=== PATIENT | male | born 1940 | race Caucasian/White ===

== ENCOUNTER 2018-06-20 00:38 | Inpatient (IN) | payer MEDICARE, OTHER ==
[2018-06-19 15:30] LABS: INR 1.03
--- NOTE | 2018-06-19 21:24 | HISTORY AND PHYSICAL ---
DATE OF ADMISSION: June 20, 2018 IDENTIFICATION/CHIEF COMPLAINT Matthew is a 78-year-old gentleman with the chief complaint of left hip pain. HISTORY OF PRESENT ILLNESS Patient has a long-standing history of hip arthritis, progressively painful and debilitating, refractory to conservative care. Surgery is indicated to relieve symptoms after failure of nonoperative measures. PAST MEDICAL HISTORY Notable for generally good health. ALLERGIES He has no known drug allergies. CURRENT MEDICATIONS 1. Baby aspirin a day. 2. Vitamins. PAST SURGICAL HISTORY 1. Cholecystectomy. 2. Left ankle surgery. 3. Right ankle fusion. SOCIAL HISTORY Negative for tobacco and alcohol use. FAMILY HISTORY Noncontributory. REVIEW OF SYSTEMS Negative. PHYSICAL EXAMINATION GENERAL: This is a well-developed, well-nourished male who appears stated age. HEENT: Normocephalic, atraumatic. NECK: Supple. LUNGS: Clear. HEART: Regular. ABDOMEN: Soft. ORTHOPEDIC: The left hip is exquisitely painful with combined flexion and rotation, and he is stiff at the end range of motion. Hip girdle strength is grossly normal. Skin envelope is intact. Calf is nontender. Neurovascular function intact. IMAGING Radiographs demonstrate end-stage hip arthritis. ASSESSMENT Left hip end-stage degenerative joint disease, progressively painful and debilitating, refractory to conservative care. PLAN Per patient request, we are going to proceed with total hip arthroplasty. The nature of the procedure, risks, benefits, the anticipated rehabilitative course reviewed. Risks include, but are not limited to , major medical or anesthetic complication, infection, neurovascular injury, blood transfusion, stiffness, scarring, fracture, tendon rupture, instability, leg length discrepancy, implant loosening, migration, or failure, persistent or recurrent pain, need for additional surgery, and other unforeseen. He understands and wishes to proceed. Signed permit is placed in the chart. No guarantees are given or implied. [facility]ITAL[facility]
[2018-06-20] VITALS (14 sets, daily range): BP systolic 107–144; BP diastolic 71–108
[~2018-06-20] VITALS: Ht 182.9 cm; Wt 90.7 kg
[~2018-06-20 00:38] MED LIST: ASPI81TA94 PO; FISH OIL PO; GLUC-198 PO; OXYC-869 PO; VITAMIN C PO
[2018-06-20] MEDS ORDERED: MIDAZOLAM 2 MG/2 ML VIAL IVP PRN (10:00)
[2018-06-20] MEDS ORDERED: ACETAMINOPHEN 500 MG TAB PO ONE (10:00)
[2018-06-20] MEDS ORDERED: CELECOXIB 200 MG CAP PO ONE (10:00)
[2018-06-20] MEDS ORDERED: FAMOTIDINE 20 MG TAB PO ONE (10:00)
[2018-06-20] MEDS ORDERED: LIDOCAINE/SOD BICARB 8.4% SYR ID ONE (10:00)
[2018-06-20] MEDS ORDERED: ceFAZolin(*) 2GM/D5W 50ML 50 ML IVPB ONE ×2 (10:00→10:30)
[2018-06-20] MEDS ORDERED: PREGABALIN 75 MG CAPSULE PO ONE (10:00)
[2018-06-20] MEDS ORDERED: NORMOSOL R SOLN(*) 1000 ML BAG 1,000 ML IV PRN ×2 (10:00→15:05)
[2018-06-20] MEDS ORDERED: TRANEXAMIC AC 1000 MG/10ML SDV 1,000 MG in DEXTROSE 5% 50 ML BAG 50 ML IV ONE ×2 (10:30→11:00)
[2018-06-20] MEDS ORDERED: cloNIDine EPIDUR INJ 100MCG/ML 40 MCG, ROPIVACAINE 0.5% 20 ML VIAL 25 ML, EPINEPHrine H... INJ ONE ×2 (10:30→11:00)
[2018-06-20] MEDS ORDERED: PROPOFOL EMUL(*) 10MG/ML 20 ML 20 ML ONE (13:05)
[2018-06-20] MEDS ORDERED: ONDANSETRON 4 MG/2 ML VIAL ONE (13:05)
[2018-06-20] MEDS ORDERED: VANCOMYCIN 1 GM VIAL ONE (14:21)
[2018-06-20] MEDS ORDERED: FLUSH 10 ML SYR IVP PRN (15:05)
[2018-06-20] MEDS ORDERED: APAP/HYDROCODONE 325/7.5 TAB PO PRN (15:05)
[2018-06-20] MEDS ORDERED: PROMETHAZINE 25 MG/ML 1 ML AMP IVP PRN (15:05)
[2018-06-20] MEDS ORDERED: MAGNESIUM HYDROXIDE* 30ML UDCP PO PRN (15:05)
[2018-06-20] MEDS ORDERED: BISACODYL 10 MG SUPP PR PRN (15:05)
[2018-06-20] MEDS ORDERED: DIAZEPAM 5 MG TAB PO PRN (15:05)
[2018-06-20] MEDS ORDERED: ZOLPIDEM TARTRATE 5 MG TAB PO PRN (15:05)
[2018-06-20] MEDS ORDERED: BENZOCAINE/MENTHOL 1 EACH LOZG PO PRN (15:05)
[2018-06-20] MEDS ORDERED: diphenhydrAMINE 25 MG CAP PO PRN (15:05)
[2018-06-20] MEDS ORDERED: ACETAMINOPHEN 325 MG TAB PO PRN (15:05)
[2018-06-20] MEDS ORDERED: diphenhydrAMINE 50 MG/ML VIAL IVP PRN (15:05)
--- NOTE | 2018-06-20 15:42 | RADIOLOGY IMAGING REPORT ---
FACILITY: [facility] - [place] PATIENT NAME: Matthew Vargas : 1940 MR: [id number] V: [id number] EXAM DATE: ORDERING PHYSICIAN: GIESLLE LOAIZA TECHNOLOGIST: [place] [facility] [place] Matthew Vargas : 1940 Visit/Account:[id number] Date of Sevice: 06/20/2018 Exam type: PELVIS History: S/P LEFT HIP ARTHROPLASTY, CHECK PLACEMENT Comparison: None. Findings: There is a left hip arthroplasty appears in good anatomic alignment on this AP view. Soft tissue gas and skin marie project over the adjacent to this postoperative hip. Incidentally noted are modera te degenerative changes the right hip joint. IMPRESSION: 1. Left hip arthroplasty appears in good anatomic alignment on this AP view Report Dictated By: Kaity Patton MD at 06/20/2018 3:35 PM Report E-Signed By: Kaity Patton MD at 06/20/2018 3:36 PM WSN:[id number]
--- NOTE | 2018-06-20 15:44 | OPERATIVE REPORT 1 ---
EVENT DATE: June 20, 2018 SURGEON: Papa Ramsay MD ANESTHESIOLOGIST: Kranthi Walters MD ANESTHESIA: General plus spinal. OFFICE MACHINE INSPECTOR: TOÑA Quintero PREOPERATIVE DIAGNOSIS Left hip end-stage degenerative joint disease. POSTOPERATIVE DIAGNOSIS Left hip end-stage degenerative joint disease. PROCEDURE PERFORMED Left total hip arthroplasty. ESTIMATED BLOOD LOSS 300 mL DRAINS None. SPECIMENS None. COMPLICATIONS None apparent. IMPLANTS USED Barbara system with a Trident PSL BRAUN 58 mm shell, a Trident X3 zero-degree poly insert for the shell to accommodate a 36 mm head, Accolade 232-degree neck angle hip stem size 9, a Biolox Delta Ceramic V40 femoral head, a 36 mm diameter, +5 neck length. INDICATIONS Matthew is a 78-year-old gentleman with intractable pain and disability related to end-stage hip arthritis. Surgery is indicated to relieve pain and improve function after failure of nonoperative measures. DESCRIPTION OF PROCEDURE Patient was taken to the operating room, placed supine on the operating table. General anesthesia induced after spinal block is administered by the anesthesiologist. Antibiotics are administered IV along with TXA. The patient is positioned in the right lateral decubitus on a well-padded pegboard. Pelvis is secured in a vertical position. All bony prominences and superficial nerves are well padded. The left hip girdle and lower extremity are prepped and draped free in the usual sterile fashion for orthopedic surgery. A small incision posterolateral approach is made, carried down through the skin and subcutaneous tissue down to the deep fascia. Fascia is incised over the tip of the trochanter, extended distally in line with the femur, proximally in line with the kaushik fibers. Kaushik fibers are split bluntly. Trochanteric bursa is excised. Interval between the abductor and external rotator is identified, and the abductor mechanism is protected with a blunt Hohmann. An L capsulotomy/tenotomy is made with the horizontal limb above the piriformis, carried over to the back of the trochanter, and then the external rotators and capsule are peeled off the back of the posterior aspect of the femur and tagged with #2 Vicryl for later anatomic reattachment. Femoral head is dislocated. End-stage arthritic change is noted. A 1.5 cm neck cut is made with an oscillating saw consistent with preoperative templating. Femoral head is extracted. Femur is translocated anteriorly. Tiffany-acetabular retractors are placed with the tips down on bone to avoid injury to critical neurovascular structures. Labrum and pulvinar are excised. The transverse acetabular ligament is identified. A 44 mm is used to medialize the true medial wall of the acetabulum. This is expanded in 2 mm increments up to 58 where nice rim contact is obtained. The 58 trial has nice [id number] fit. A 59 is then used to open the floor of the acetabulum to accommodate the raised rim liner and to minimize fracture risk. The wound is lavaged. The actual shell is impacted in about 50 degrees of lateral opening and about 20 to 25 degrees of anteversion. Both the lateral opening and the anteversion are increased slightly in this patient with a stiff arthritic scoliotic spine to provide additional stability. Solid fixation is achieved. No adjuvant fixation is felt to be needed. The shell is lavaged and dried, and the actual liner is impacted into position in the shell. Attention is turned to femoral preparation. The superior neck is resected with a cookie cutter. An awl finds the canal. Tapered broaching starts at zero and works up to size 9 where good fit and fill and stability are achieved. Trial reduction is performed off this broach, and good gnosticist of limb length and stability are achievable. The broach is removed, and the actual stem is impacted and seats at roughly the same height. Various neck lengths are tried. The +5 is felt to be optimal for gnosticist of soft tissue tension, stability, and limb length. The Scott taper is lavaged and dried. The actual Biolox head is impacted into position. The joint is reduced, and pain cocktail is infiltrated throughout the wound. The wound is copiously lavaged. Sutures of #2 Vicryl through drill holes in the posterolateral femur to reattach the external rotators in the capsule anatomically. Vancomycin powder is placed through the superior capsular split. Deep fascia closed distally with #2 Ethibond, proximally with #2 Vicryl, subcutaneous tissue with 3-0 Vicryl, and skin with surgical marie. Xeroform is applied for a dry, sterile dressing and a hip wrap. Patient is rolled supine. Abduction pillow is placed. He is awakened from anesthesia and taken to the recovery room in stable condition having tolerated the procedure well. Plan is for standard [facility] rehab protocol. [facility]
[2018-06-20] MEDS ORDERED: hydrALAZINE HCL 20 MG/ML VIAL ONE (15:56)
[2018-06-20] MEDS ORDERED: MULT1CAP59 PO (16:57)
[2018-06-20] MEDS ORDERED: ACET500T68 PO (17:01)
--- NOTE | 2018-06-20 17:34 | Hospitalist Consultation ---
History of Present Illness Requesting Physician Dr. Ramsay Reason for Consult Medical Management Chief Complaint s/p left hip replacement History of Present Illness He was admitted s/p left hip replacement. It is reported the surgery went well and without complication. History Problems: (1) Atrial fibrillation Status: Chronic Home Meds Reported Medications Acetaminophen (TYLENOL EXTRA STRENGTH) 500 Mg Tablet, 1-2 TAB PO Q6H, TAB 06/20/18 Multivitamin (MULTIVITAMINS) 1 Each Capsule, 1 EACH PO, CAPSULE 06/20/18 Aspirin (ASPIRIN) 81 Mg Tab.chew, 81 MG PO QDAY, TAB.CHEW TAKE 1 TABLET BY MOUTH EVERY DAY 06/19/13 Glucosa Sharif 2KCL/Chondroitin Sharif (GLUCOSAMINE & CHONDROITIN CAP) 1 Each Capsule, 1 EACH PO DAILY, CAPSULE 06/19/13 [Vitamin C] No Conflict Check, PO DAILY 06/19/13 [Fish Oil] No Conflict Check, PO DAILY 06/19/13 Discontinued Reported Medications Oxycodone Hcl/Acetaminophen (PERCOCET 7.5-325 MG TABLET) 1 Each Tablet, 1-2 EACH PO Q4-6H PRN for PAIN, #40 06/22/13 Allergies: Coded Allergies: No Known Drug Allergies (Unverified , 06/13/18) Hx Smoking: No Smoking Status: Never Smoker Exposure to Second Hand Smoke?: No Caffeine Intake: Coffee, Tea, Soda Caffeine/Cups Per Day: 2 CUPS PER DAY Hx Alcohol Use: No Hx Substance Use Disorder: No Review of Systems All Systems Reviewed/Normal: Yes, Except as Noted Exam Vital Signs Vital Signs Date Time Temp Pulse Resp B/P (MAP) Pulse Ox O2 Delivery O2 Flow Rate FiO2 06/20/18 16:37 96.5 76 16 144/108 (120) 98 Nasal Cannula 2.0 General Appearance: Alert, Awake, No Acute Distress, Afebrile Neuro: No Gross deficits Cardiovascular: Other (irregular heart rate) Respiratory: No Respiratory Distress, Clear to Auscultation Psych: Alert & Oriented X3, Appropriate Mood & Affect Assessment and Plan Problems: (1) Status post left hip replacement Status: Acute Assessment & Plan: Followed by Dr. Ramsay. He has recommended patient use Aspirin for DVT prophylaxis. He has no history of DVT or PE. (2) Atrial fibrillation Status: Chronic Assessment & Plan: He was found to have atrial fibrillation in pre-op. The patient was unaware he had atrial fibrillation. He did have an echo in November 2017, which showed enlarged left atrium, EF 60%. According to EKG from surgical clearance, it was noted patient was in atrial fibrillation which was unchanged from 2013. He will be placed on Telemetry. Venous Thromboembolism Antithrombotics Is Pt On Any Antithrombotics?: No Problem Qualifiers (1) Atrial fibrillation: Atrial fibrillation type: chronic Qualified Codes: I48.2 - Chronic atrial fibrillation EMEKA CESPEDES Jun 20, 2018 17:34
[2018-06-20] MEDS: CELECOXIB 200 MG CAP PO SCH (17:49)
[2018-06-20] MEDS: ceFAZolin(*) 1 GM VIAL 1 GM in NS(*) 0.9% 100 ML ADDVANT BAG 100 ML IVPB SCH (21:18)
[2018-06-21] VITALS: BP 109/76
[2018-06-21 03:00] VITALS: BP 118/83
[2018-06-21] MEDS: ceFAZolin(*) 1 GM VIAL 1 GM in NS(*) 0.9% 100 ML ADDVANT BAG 100 ML IVPB SCH ×2 (04:29→12:50)
[2018-06-21 08:13] VITALS: BP 121/99
[2018-06-21] MEDS: CELECOXIB 200 MG CAP PO SCH (08:19)
[2018-06-21] MEDS ORDERED: ASPIRIN 325 MG TAB PO SCH (09:00)
[2018-06-21] MEDS ORDERED: RIVAROXABAN 10 MG TAB PO SCH (09:00)
[2018-06-21] MEDS ORDERED: RIV10 PO (10:34)
--- NOTE | 2018-06-21 11:23 | Hospitalist Progress Note ---
Subjective Progress Notes Subjective He has no complaints this morning. He is still in afib today. Patient Complains of: Cardiovascular: No: Chest Pain Respiratory: No: Shortness of Breath Physical Exam Vital Signs Date Time Temp Pulse Resp B/P (MAP) Pulse Ox O2 Delivery O2 Flow Rate FiO2 06/21/18 08:13 98.1 79 16 121/99 (106) 94 Nasal Cannula 2.0 Intake and Output 06/21/18 07:00 Intake Total 1860 ml Output Total 300 ml Balance 1560 ml Intake Oral 450 ml IV Total 1410 ml Output Urine Total 300 ml General Appearance: Alert, Awake, No Acute Distress, Afebrile Neuro: No Gross deficits Cardiovascular: Other (irregular rhythm noted.) Respiratory: No Respiratory Distress, Clear to Auscultation Psych: Alert & Oriented X3, Appropriate Mood & Affect Assessment and Plan Problems: (1) Status post left hip replacement Status: Acute Assessment & Plan: Followed by Dr. Ramsay. I have changed the patient to Xarelto 10mg daily for DVT prophylaxis, secondary to increased risk of blood clots with atrial fibrillation. (2) Atrial fibrillation Status: Chronic Assessment & Plan: He was found to have atrial fibrillation in pre-op. The patient was unaware he had atrial fibrillation. He did have an echo in November 2017, which showed enlarged left atrium, EF 60%. According to EKG from surgical clearance, it was noted patient was in atrial fibrillation which was unchanged from 2013. He was placed on Telemetry, and was in atrial fibrillation throughout admission. He will continue Xarelto, recommend patient follow up with PCP for further anticoagulation recommendations. His rates were controlled throughout admission. Copies to: FLORES WISDOM MD ; Exam Sepsis Risk: No Definite Risk Problem Qualifiers (1) Atrial fibrillation: Atrial fibrillation type: chronic Qualified Codes: I48.2 - Chronic atrial fibrillation EMEKA CESPEDES SOLDERING MACHINE TENDER Jun 21, 2018 18:22
[2018-06-21] MEDS ORDERED: HYDR-654 PO (11:30)
[2018-06-21 11:48] VITALS: Ht 182.9 cm; Wt 90.7 kg
[2018-06-21 12:37] VITALS: BP 121/99
== END 2018-06-21 14:26 | disposition home health service (06) | DRG 470 ==
LOC: OR 00:38 → MED 16:30
PROVIDERS: ADMIT Orthopaedic Surgery; ATTEND Orthopaedic Surgery
PROC: 0SRB04Z Replacement of Left Hip Joint with Ceramic on Polyethylene Synthetic Substitute, Open Approach (ICD-10-PCS; principal; 2018-06-20 11:30)
DX: M16.12 Unilateral primary osteoarthritis, left hip (principal); Z90.49 Acquired absence of other specified parts of digestive tract; Z98.1 Arthrodesis status
CPT/HCPCS: 36415; 72170; 85610; 86850; 86900; 86901; 97161; 97165; C1776; J0171; J0360; J0690; J0735; J1885; J2250; J2405; J2704; J2795; J3370; J7050; J7060